=== PATIENT | male | born 1970 | race American Indian/Alaskan Native ===

== ENCOUNTER 2017-04-06 15:25 | Observation (INO) | payer OTHER ==
[2017-04-06 15:34] VITALS: BMI 31.4
[2017-04-06 15:37] VITALS: RESP 18
--- NOTE | 2017-04-06 16:06 | ED PDOC ---
Arrival/HPI - General Historian: Patient - History of Present Illness Time/Duration: 1-3 hours Symptom Onset: Sudden Symptom Course: Resolved Quality: Tightness Severity Level: Moderate Activities at Onset: Rest Context: Home <Benigno Nielsen - Last Filed: 04/06/17 16:07> <Jose Alberto Zimmerman - Last Filed: 04/06/17 17:44> - General Chief Complaint: Chest Pain Time Seen by Provider: 04/06/17 15:27 - History of Present Illness Narrative History of Present Illness (Text): 04/06/17 16:00 46yo M PMH HTN, sleep apnea, and GERD who presents with chest pain that started 3 hours ago. pt states that he had some discomfort on Wednesday which he describes as being similar to his GERD symptoms, and then a tightness that began 3 hours ago for 10 mins on/off for about an hour. pain was not a/w breathing but was worsened with movements. pt denied diaphoresis, sob, fevers, n/v/d, recent illness. pt has been working out more recently and states he had some spasm while working out. of note, the pt had a stress test in August 2016 which was normal except for mildly enlarged ventricle and thickened myocardium. pt states that he took 5x81mg chewable ASA earlier today, with moderate relief, however pain was resolved by the time EMT saw the pt. Pt states that he has not taken his Lisinopril in a few weeks because he didn't have refills. (Benigno Nielsen) Past Medical History - Provider Review Nursing Documentation Reviewed: Yes - Infectious Disease Hx of Infectious Diseases: None - Cardiac Hx Hypertension: Yes - Pulmonary Hx Sleep Apnea: Yes - Neurological Hx Neurological Disorder: No - HEENT Hx HEENT Disorder: No - Renal Hx Renal Disorder: No - Endocrine/Metabolic Hx Endocrine Disorders: No - Hematological/Oncological Hx Blood Disorders: No - Integumentary Hx Dermatological Disorder: No - Musculoskeletal/Rheumatological Hx Musculoskeletal Disorders: No - Gastrointestinal Hx Gastrointestinal Disorders: No - Genitourinary/Gynecological Hx Genitourinary Disorders: No - Psychiatric Hx Psychophysiologic Disorder: No Hx Substance Use: No - Surgical History Hx Orthopedic Surgery: Yes (L knee surgery) - Anesthesia Hx Anesthesia: Yes Hx Anesthesia Reactions: No Hx Malignant Hyperthermia: No <Benigno Nielsen - Last Filed: 04/06/17 16:07> Family/Social History - Physician Review Nursing Documentation Reviewed: Yes Family/Social History: No Known Family HX Smoking Status: Never Smoked Hx Alcohol Use: No Hx Substance Use: No <Benigno Nielsen - Last Filed: 04/06/17 16:07> Family/Social History: Hypertension <Britton Zimmermanleia - Last Filed: 04/06/17 17:44> Allergies/Home Meds <Benigno Nielsen - Last Filed: 04/06/17 16:07> <Britton Zimmermanleia - Last Filed: 04/06/17 17:44> Allergies/Adverse Reactions: Allergies No Known Allergies Allergy (Verified 09/04/16 12:40) Home Medications: Home Meds Medication Instructions Recorded Confirmed Lisinopril [Zestril] 20 mg PO DAILY 09/04/16 04/06/17 Review of Systems - Physician Review All systems were reviewed & negative as marked: Yes - Review of Systems Constitutional: absent: Fevers Respiratory: absent: SOB, Cough Cardiovascular: Chest Pain (resolved). absent: Palpitations, Edema <Benigno Nielsen - Last Filed: 04/06/17 16:07> Physical Exam Vital Signs Reviewed: Yes Appearance: Positive for: Well-Appearing Pain Distress: None Mental Status: Positive for: Alert and Oriented X 3 - Systems Exam Head: Present: Atraumatic, Normocephalic Pupils: Present: PERRL Extroacular Muscles: Present: EOMI Conjunctiva: Present: Normal Neck: Present: Normal Range of Motion Respiratory/Chest: Present: Clear to Auscultation, Good Air Exchange. No: Respiratory Distress, Accessory Muscle Use Cardiovascular: Present: Regular Rate and Rhythm, Normal S1, S2. No: Murmurs Abdomen: Present: Normal Bowel Sounds. No: Tenderness, Distention Back: Present: Normal Inspection. No: CVA Tenderness Upper Extremity: Present: Normal Inspection, Normal ROM Lower Extremity: Present: Normal Inspection. No: Edema, CALF TENDERNESS, Gildardo' s Sign Neurological: Present: CN II-XII Intact, Speech Normal, Motor Func Grossly Intact, Normal Sensory Function Skin: Present: Warm, Dry, Normal Color. No: Rashes Psychiatric: Present: Alert, Oriented x 3 <Benigno Nielsen - Last Filed: 04/06/17 16:07> Vital Signs Temp Pulse Resp BP Pulse Ox 04/06/17 17:08 70 18 148/79 96 04/06/17 15:36 98.4 F 75 18 151/87 H 96 Medical Decision Making <Benigno Nielsen - Last Filed: 04/06/17 16:07> <Jose Alberto Zimmerman - Last Filed: 04/06/17 17:44> ED Course and Treatment: 04/06/17 16:12 Impression: 46yo M presenting with chest pain likely musculoskeletal r/o ACS Plan: - EKG - ASA - Cardiac ISO - UA - LABS Progress: EKG showed NSR (Gia,Benigno) 04/06/17 16:37 Patient seen and evaluated with medical education specialist. Treatment plan reviewed with resident. On my examination patient is cv stable but complains of chest pain radiating down arm since Wednesday. Pain was worse when using elliptical machine with radiation down arm. Pain does not radiate down back. Currently bp and pulse equal in both upper extremities. No abdominal pain palpable at this time. Initial EKG unremarkable. He has hx of HTN, high cholesterol. Recent stress test earlier this year was reviewed. 04/06/17 17:38 Initial troponin unremarkable. Pain is not reproducible, THERE IS NO ASSOCIATION WITH MEALS. No abdominal pain palpated. States PMD Dr. Dumont. He has had 2-3 further episodes of pain during evaluation although no associated diaphoresis or dyspnea, remains cv stable. Will admit to telemetry observation given cardiac risk factors, case accepted by Dr. Herndon, on-call physician. Will consult his [employer] [facility] consultant, who he states is Dr. Thom Carlisle. 04/06/17 17:42 (Jose Alberto Zimmerman) - Lab Interpretations Lab Results: 04/06/17 16:27 04/06/17 16:27 Lab Results 04/06/17 16:27: Sodium 141, Potassium 4.2, Chloride 104, Carbon Dioxide 31, Anion Gap 10, BUN 10, Creatinine 1.0, Est GFR ( Amer) > 60, Est GFR (Non- Af Amer) > 60, Random Glucose 93, Calcium 9.2, Magnesium 2.1, Total Bilirubin 0.6, AST 28, ALT 34, Alkaline Phosphatase 35 L, Lactate Dehydrogenase 411, Total Creatine Kinase 255 H, CK-MB (CK-2) 1.6, CK-MB (CK-2) % Cancelled, Troponin I < 0.01, Total Protein 7.0, Albumin 4.1, Globulin 2.9, Albumin/ Globulin Ratio 1.4 04/06/17 16:27: WBC 5.2, RBC 5.06, Hgb 13.1 L, Hct 40.5 L, MCV 80.0, MCH 25.9, MCHC 32.3, RDW 13.4, Plt Count 123, MPV 10.3, Gran % 67.1, Lymph % (Auto) 24.6, Wright % (Auto) 5.8, Eos % (Auto) 2.3, Baso % (Auto) 0.2, Gran # 3.49, Lymph # 1.3 , Wright # 0.3, Eos # 0.1, Baso # 0.01 - RAD Interpretation Radiology Orders: 04/06/17 15:49 CHEST PORTABLE [RAD] Stat - Medication Orders Current Medication Orders: Discontinued Medications Aspirin (Aspirin) 325 mg PO STAT STA Stop: 04/06/17 15:50 Last Admin: 04/06/17 16:30 Dose: 325 mg Famotidine (Pepcid) 20 mg IVP STAT STA Stop: 04/06/17 17:34 Disposition/Present on Arrival - Present on Arrival History of DVT/PE: No History of Uncontrolled Diabetes: No Urinary Catheter: No History of Decub. Ulcer: No History Surgical Site Infection Following: None <Benigno Nielsen - Last Filed: 04/06/17 16:07> - Present on Arrival Any Indicators Present on Arrival: No - Disposition Have Diagnosis and Disposition been Completed?: Yes Disposition Time: 17:42 Patient Plan: Admission, Observation, Telemetry <Jose Alberto Zimmerman - Last Filed: 04/06/17 17:44> - Disposition Diagnosis: Chest pain Disposition: HOSPITALIZED Condition: FAIR Discharge Instructions (ExitCare): Chest Pain (ED) Forms: [employer] ([place])
[2017-04-06 16:37] LABS: BASO # 0.01 K/mm3 (0.0-2.0); BASO % 0.2 % (0.0-3.0); EOS # 0.1 (0.0-0.7); EOS % 2.3 % (1.5-5.0); GRAN # 3.49 (1.4-6.5); GRAN % 67.1 % (50.0-68.0); HEMATOCRIT 40.5 % (42.0-52.0); LYMPH # 1.3 (1.2-3.4); LYMPH % 24.6 % (22.0-35.0); MEAN CORPUSCULAR HEMOGLOBIN 25.9 pg (25.0-35.0); MEAN CORPUSCULAR HGB CONC 32.3 g/dl (31.0-37.0); MEAN PLATELET VOLUME 10.3 fl (7.0-11.0); MONO # 0.3 (0.1-0.6); MONO % 5.8 % (1.0-6.0); RED CELL DISTRIBUTION WIDTH 13.4 % (11.5-14.5); WHITE BLOOD COUNT 5.2 10^3/ul (4.5-11.0)
--- NOTE | 2017-04-06 16:37 | RAD ---
HISTORY: cp COMPARISON: No prior. FINDINGS: LUNGS: No active pulmonary disease. PLEURA: No significant pleural effusion identified, no pneumothorax apparent. CARDIOVASCULAR: Normal. OSSEOUS STRUCTURES: No significant abnormalities. VISUALIZED UPPER ABDOMEN: Normal. OTHER FINDINGS: None. IMPRESSION: No active disease.
[2017-04-06 16:50] LABS: ALB/GLOB RATIO 1.4 (1.1-1.8); ALKALINE PHOSPHATASE 35 U/L (38-126); ALT/SGPT 34 U/L (7-56); AST/SGOT 28 U/L (17-59); BILIRUBIN,TOTAL 0.6 mg/dL (0.2-1.3); BLOOD UREA NITROGEN 10 mg/dL (7-21); CALCIUM 9.2 mg/dL (8.4-10.5); CARBON DIOXIDE 31 mmol/L (21-33); CHLORIDE 104 mmol/L (98-107); GFR AFRICAN-AMERICAN > 60; GLUCOSE,RANDOM 93 mg/dL (70-110); MAGNESIUM 2.1 mg/dL (1.7-2.2); POTASSIUM 4.2 mmol/L (3.6-5.0); SODIUM 141 mmol/L (132-148)
[2017-04-06 17:03] LABS: TROPONIN I < 0.01 ng/mL
[2017-04-06 18:19] VITALS: O2SAT 98
[2017-04-06 23:04] LABS: CHOLESTEROL 144 mg/dL (130-200)
[2017-04-06 23:21] LABS: TROPONIN I < 0.01 ng/mL
[2017-04-06 23:39] LABS: IRON 57 ug/dL (45-180)
[2017-04-07 00:04] VITALS: TEMP 98.1
--- NOTE | 2017-04-07 01:43 | HP ---
CHIEF COMPLAINT: Chest pain and shortness of breath. HISTORY OF PRESENT ILLNESS: Mr. Tom Arriola is a 46-year-old male with past medical history of sleep apnea, GERD, dyspepsia, came to the emergency room with chest pain, shortness of breath, started 3 hours ago. The patient states that he has some discomfort on Wednesday which he described as being similar to his GERD, dyspepsia and then tightness began 3 hours ago for 10 minutes on and off for about 1 hour. Pain was not very sharp. The patient denies diaphoresis, fevers. No nausea, vomiting or diarrhea. No hematuria or hematochezia. The patient has been working out more recently and states that he has some spasm while working out, means doing exercise. The patient's stress test done in 08/[address] Lino Carlisle that was normal except for mildly enlarged ventricle and thickened myocardium. The patient states he took 5, 81 mg chewable aspirin earlier today with moderate relief; however, pain was resolved by the time EMD saw the patient. The patient states he has not taken his lisinopril few weeks because he did not have refills. The patient is noncompliant. PAST MEDICAL HISTORY: Hypertension, sleep apnea, left knee surgery, obesity. FAMILY HISTORY: Father and mother noncontributory. HABITS: Never smoked. No drugs. No ethanol. ALLERGIES: THE PATIENT IS NOT ALLERGIC TO ANY MEDICATIONS. HOME MEDICATIONS: Lisinopril and aspirin. REVIEW OF SYSTEMS: The patient was seen and examined on the bedside in the ER, looking comfortable. At that moment, no chest pain. Alert and oriented x3. No nausea, vomiting or diarrhea. No hematuria or hematochezia. No swelling of the legs. No headache, no dizziness. No fever, no chills. PHYSICAL EXAMINATION VITAL SIGNS: Temperature 98.4, pulse 75, respiratory rate 18, blood pressure 150/87, pulse oximetry 97. HEENT: Head is normocephalic and atraumatic. Eyes: PERRLA. Extraocular muscles are intact. Conjunctivae clear. Nose is patent. Mucous membrane is moist. NECK: Supple. No carotid bruit, JVD or thyromegaly. CHEST: Bilaterally symmetrical. HEART: S1 and S2 positive. LUNGS: Clear to auscultation. ABDOMEN: Soft. Bowel sounds present. No organomegaly. EXTREMITIES: No edema. No cyanosis. NEUROLOGIC: The patient is awake and alert. Moving all 4 extremities. No focal deficits. LABORATORY DATA: White blood cell is 5.2, hemoglobin 13.1, hematocrit 40.5, platelets 126. Sodium 141, potassium 4.2, BUN 10, creatinine 1.0, glucose 93. ASSESSMENT AND PLAN: Mr. Tom Arriola is a 46-year-old male with history of anemia, obstructive sleep apnea syndrome, hypertension, came with chest pain, given aspirin and Pepcid, history of gastroesophageal reflux disease, dyspepsia, and obesity. We will do lipid profile, TSH, cardiac enzyme x3. We will call cardiac consult with Dr. Lino Carlisle, gastrointestinal and deep venous thrombosis prophylaxis, repeat labs. Yaima Herndon MD
[2017-04-07 06:37] LABS: BLOOD UREA NITROGEN 10 mg/dL (7-21); CALCIUM 8.9 mg/dL (8.4-10.5); CARBON DIOXIDE 30 mmol/L (21-33); CHLORIDE 104 mmol/L (98-107); GFR AFRICAN-AMERICAN > 60; GLUCOSE,RANDOM 89 mg/dL (70-110); POTASSIUM 3.5 mmol/L (3.6-5.0); SODIUM 142 mmol/L (132-148)
--- NOTE | 2017-04-07 08:26 | CON ---
DATE: 04/07/2017 HISTORY: The patient is a 46-year-old male who presents with several days of epigastric discomfort, and he describes these symptoms consistent with his GERD. The patient's cardiac risk factors include hypertension. No diabetes mellitus. The patient has dropped 20 pounds as part of an improved cardiac risk reduction program. SOCIAL HISTORY: The patient does not smoke. REVIEW OF SYSTEMS: A 14-point review of systems was reviewed in detail. No cardiac symptomatology is noted. PHYSICAL EXAMINATION: VITAL SIGNS: Blood pressure 138/70, the heart rate is in the 60s. NECK: Negative JVD. LUNGS: Without rales. HEART: S1, S2. EXTREMITIES: Without edema. LABORATORY DATA: Laboratories reveal troponins are negative x2. EKG reveals normal sinus rhythm and is within normal limits. His cholesterol is 144. IMPRESSION: 1. Chest pain. 2. No evidence for acute coronary syndrome. 3. History of hypertension. 4. History of gastroesophageal reflux disease. Given these findings, we will DC telemetry today. We will DC his aspirin. I agree with Pepcid or Protonix. From a cardiac perspective, the patient can be discharged. Lino Carlisle MD
[2017-04-07 10:20] VITALS: BP 136/68; PULSE 82
--- NOTE | 2017-04-07 11:06 | CARD ---
APPROVED REPORT EKG Measurement Heart [id number] <Conclusion> Normal sinus rhythm Normal ECG
[2017-04-07 13:09] LABS: FOLATE 14.4 ng/mL
--- NOTE | 2017-04-08 04:20 | DS ---
CHIEF COMPLAINT: Chest pain. HISTORY OF PRESENT ILLNESS: The patient is a 46-year-old male with past medical history of sleep apnea syndrome, GERD, dyspepsia, came to the emergency room with chest pain, shortness of breath, started 3 hours before hospitalization, and the patient states that he has some discomfort on Wednesday, which he described as being similar to his GERD, dyspepsia and then tightness began, then he came to [facility] Emergency Room. The patient was admitted. Cardiac enzymes done. Consult called with Dr. Lino Carlisle. According to Dr. Lino Carlisle, the patient's pain is like epigastric discomfort, and it looks like this symptom is consistent with GERD. The patient did not have any diabetes. The patient has dropped 20 pounds as part of his improved cardiac risk reduction program. According to the multicultural internship, no evidence of acute coronary syndrome. Given the findings, Dr. Lino Carlisle discontinued the telemetry, discontinued the aspirin, agree with Pepcid and Protonix. After cardiac clearance, we will discharge the patient to home. Followup with primary care physician and multicultural internship. Sent him home with home medications except aspirin. Nurse practitioner, Adenike was advised to write prescription for the patient. PAST MEDICAL HISTORY: Hypertension, sleep apnea, left knee surgery and obesity. FAMILY HISTORY: Father and mother noncontributory. HABITS: Never smoked. No drugs. No ethanol. ALLERGIES: THE PATIENT IS NOT ALLERGIC TO ANY MEDICATIONS. HOME MEDICATIONS: Lisinopril and aspirin. REVIEW OF SYSTEMS: The patient was seen and examined on the bedside, looking comfortable. No nausea, vomiting or diarrhea. No hematuria or hematochezia. No swelling of the legs. Chest pain improved. No fever, no chills. No overnight event happened. PHYSICAL EXAMINATION VITAL SIGNS: Temperature 98.1, pulse 62, blood pressure 136/68, respiratory rate 18. HEENT: Head is normocephalic and atraumatic. Eyes: PERRLA. Extraocular muscles are intact. Conjunctivae clear. Nose is patent. Mucous membrane is moist. NECK: Supple. No carotid bruit, JVD or thyromegaly. CHEST: Bilaterally symmetrical. HEART: S1 and S2 positive. LUNGS: Clear to auscultation. ABDOMEN: Soft. Bowel sounds present. No organomegaly. EXTREMITIES: No edema. No cyanosis. NEUROLOGIC: The patient is awake and alert. Moving all 4 extremities. No focal deficits. LABORATORY DATA: White blood cell is 5.2, hemoglobin 13.1, hematocrit 40.5, platelets 123. Sodium 142, potassium 3.5, BUN 10, creatinine 1.0 and glucose 89. Hemoglobin A1c 6.2. Calcium 8.9. Iron saturation 19. Creatinine kinase was noted to be 255 and repeated 231. ASSESSMENT AND PLAN: The patient is a 46-year-old with anemia, need workup as an outpatient; hypokalemia, replete; iron deficiency; came with chest pain; looks like musculoskeletal after doing elliptical, he is trying to lose weight, he lost almost 20 pounds. No evidence for acute coronary syndrome. History of hypertension, history of gastroesophageal reflux disease. Given these findings, multicultural internship discontinued telemetry and if telemetry is discontinued, no aspirin. I started Pepcid, Protonix. Zestril given. The patient will follow up with primary care physician and multicultural internship. Gastrointestinal and deep venous thrombosis prophylaxis. Repeat labs. Yaima Herndon MD
== END 2017-04-07 12:40 | disposition home or self-care (01) ==
LOC: ED 15:25 → ERH 17:37 → 2RNO 23:30
PROVIDERS: ADMIT Internal Medicine; ATTEND Internal Medicine
DX: R07.89 Other chest pain (principal); I10 Essential (primary) hypertension; K21.9 Gastro-esophageal reflux disease without esophagitis; D64.9 Anemia, unspecified; E87.6 Hypokalemia; G47.33 Obstructive sleep apnea (adult) (pediatric); E66.9 Obesity, unspecified; Z68.30 Body mass index [BMI] 30.0-30.9, adult; Z91.19 Patient's noncompliance with other medical treatment and regimen
CPT/HCPCS: 36415; 71010; 80048; 80053; 80061; 82550; 82553; 82607; 82746; 83036; 83540; 83550; 83615; 83735; 84443; 84484; 85025; 93005; 96374; 99285; G0378